=== PATIENT | male | born 1945 | race Caucasian/White ===

== ENCOUNTER → 2017-02-28 | Outpatient (CLI) | payer MEDICARE, MEDICAID ==
[~2017-02-28] MED LIST: ACTOS45 M1 PO; ACTOS45 MG PO; AMIODARONE 200200 MG PO; ASPIRIN81 MG PO; BACTRIM DS 8001 TA1 PO; CLINDAMYCIN HC300 MG PO; COREG25 MG PO; FUROSEMIDE 40MG40 M1 PO; FUROSEMIDE40 MG PO; GLIPIZIDE10 MG PO; HYDROCODONE/ACE1 TA5 PO; HYDROCODONE1 TABLET PO; LIPITOR40 MG PO; LOSARTAN POTAS100 MG PO; METFORMIN HCL1000 MG PO; PLAVIX 75MG TAB75 MG PO; POLYMYXIN B/TRI10 ML OP; POTASSIUM CHLO20 ME2 PO; PRILOSEC40 MG PO; RESTORIL 30MG C30 MG PO; VALTREX1 GM PO
--- NOTE | 2017-02-28 16:22 | RADIOLOGY REPORT PS360 ---
CHEST(2 VIEWS-NOT PORTABLE) HISTORY: COUGH ORDERING PHYSICIAN: Bladimir Morgan MD PATIENT AGE: 71 years COMPARISON: 09/26/2016 FINDINGS: Prior median sternotomy. Mild cardiomegaly with mild pulmonary venous congestion suggesting mild CHF. Lungs are clear. No acute bony anomalies. IMPRESSION: Mild CHF
== END ==
LOC: RAD 15:45
DX: R05 Cough (principal)

== ENCOUNTER → 2017-08-17 | Outpatient (CLI) | payer MEDICARE, MEDICAID ==
--- NOTE | 2017-08-17 13:39 | RADIOLOGY REPORT PS360 ---
CERVICAL SPINE 4 OR 5 VIEWS COMPARISON: None HISTORY: Generalized neck pain TECHNIQUE: AP lateral and oblique views and spot view of the odontoid and swimmer's view FINDINGS: There is normal curvature. There is generalized osteopenia. There is marked disc space narrowing at the C3-4 level with possibly partial autofusion of the posterior aspects of the vertebral bodies which may be congenital partial fusion. It is difficult to determine degenerative change from congenital fusion due to the prominent generalized osteopenia. There is disc space narrowing and prominent anterior ossific spurring at the C5-6 level. Oblique films show no significant neural foraminal narrowing. The prevertebral soft tissues are normal and the odontoid is normal. IMPRESSION: Partial congenital fusion C3 and 4 versus degenerative change with disc space narrowing but I somewhat favor the former lung with prominent degenerative disc disease C5-6
--- NOTE | 2017-08-17 13:48 | RADIOLOGY REPORT PS360 ---
THORACIC SPINE-3V SWIMMERS COMPARISON: None HISTORY: Generalized back pain TECHNIQUE: AP and lateral views FINDINGS: There is generalized osteopenia. There is no obvious compression fracture seen. However the cervical thoracic junction and upper thoracic spine are poorly visualized due to overlying shadows of the humeral head and clavicle compounded by the underlying osteopenia. There is mild diffuse dextroscoliotic curvature of the lower thoracic spine. There is no paraspinal mass. There is generalized cardio megaly and there are sternal wire sutures noted. IMPRESSION: Prominent generalized osteopenia no definite compression fracture seen.
--- NOTE | 2017-08-17 15:50 | RADIOLOGY REPORT PS360 ---
L-SPINE BEND 2-3 VIEWS ONLY COMPARISON: None HISTORY: Low back pain with radiculopathy TECHNIQUE: Flexion and extension views only FINDINGS: The patient is rather large and bony detail is somewhat degraded. There does appear to be mild generalized osteopenia. There are slightly decreased range of motion on the flexion and extension views. There is no significant disc space narrowing. There is prominent arteriosclerotic calcification of the abdominal aorta with mild diffuse fusiform aneurysm of the infrarenal aorta measuring 3.5 cm in diameter. Consider follow-up ultrasound the aorta for better evaluation. IMPRESSION: Generalized osteopenia is somewhat decreased range of motion, probable fusiform aneurysm of the infrarenal aorta suggest follow-up nonemergent ultrasound
== END ==
LOC: RAD 11:09
DX: M54.5 Low back pain (principal); M54.2 Cervicalgia; R20.2 Paresthesia of skin; R20.0 Anesthesia of skin

== ENCOUNTER → 2017-09-04 | Outpatient (CLI) | payer MEDICARE, MEDICAID ==
--- NOTE | 2017-09-04 10:10 | RADIOLOGY REPORT PS360 ---
US AORTA (RETROPERITONEAL) HISTORY: Follow-up abdominal aortic aneurysm AAA ORDERING PHYSICIAN: Michelle Mcgregor APRN PATIENT AGE: 72 years COMPARISON: None FINDINGS: Study is technically difficult due to patient's body habitus. The abdominal aorta at the level the umbilicus measures approximately 3.6 cm in AP dimension. The measurements are somewhat difficult to obtain and would be better evaluated with CT scan. No previous exams are available for comparison. Proximal common iliacs do not appear dilated. IMPRESSION: Study is technically difficult. There does appear to be mild aneurysmal dilatation of the lower abdominal aorta at 3.6 cm. Consider further evaluation with CT scan for confirmation of definite dimensions
== END ==
LOC: RAD 07:47
DX: I71.4 Abdominal aortic aneurysm, without rupture (principal)

== ENCOUNTER → 2017-10-27 | Outpatient (CLI) | payer MEDICARE, MEDICAID ==
[2017-10-27 12:37] LABS: LYMPH # 0.5 K/mm3 (0.7-4.5); LYMPH % 13.5 % (10-50)
[2017-10-27 12:39] LABS: HEMOGLOBIN 10.3 g/dL (14.1-18.0)
--- NOTE | 2017-10-27 13:18 | RADIOLOGY REPORT PS360 ---
CHEST(2 VIEWS-NOT PORTABLE) Ordering Physician: Michelle Mcgregor APRN Patient Age: 72 years: Male HISTORY: SHORTNESS OF BREATHdyspnea short of breath TECHNIQUE: PA and lateral chest. PA film with 2 lateral views submitted COMPARISON :February 2017 PA and lateral chest.. Also CT abdomen September 2017 which includes lung bases. FINDINGS Cardiomegaly. Previous sternotomy and CABG. Mild vascular engorgement but this appears unchanged with no overt acute CHF. No pleural effusion. No pneumothorax. Fair inspiration. No focal pneumonia.. The chest wall is similar to previous studies. Demineralization of the T-spine but no acute fracture or findings. No interval change here appreciable IMPRESSION: Nothing definitely acute Mild chronic changes Mild cardiomegaly with CABG. . Perhaps minor pulmonary vascular engorgement but no overt CHF. & No interval change.
[2017-10-27 13:36] LABS: BUN 23 mg/dL (7-18)
[2017-10-27 13:54] LABS: GFR (ESTIMATED) 74 ML/MIN (>60)
== END ==
LOC: LAB 11:34
PROVIDERS: Nurse Practitioner
DX: R06.02 Shortness of breath (principal)